=== PATIENT | female | born 1970 | race Caucasian/White ===

== ENCOUNTER → 2021-01-21 12:35 | Outpatient (REF) | payer MEDICAID, SELFPAY ==
--- NOTE | 2021-01-21 12:43 | CA_ITS ---
Transthoracic Echocardiogram Patient (Last, First, Middle): Alessandra Carrillo, Gender: Female Date of : 1970 Age: 50 Procedure Date: 01/21/2021 Procedure Type: Transthoracic Echocardiogram Location: OP Height: 160.02 cm Weight: 90.72 kg BSA: 1.93 m2 Heart Rate: bpm BP: 109 / 68 mmHg Loss Prevention Operations Manager: [email or web address] Referring MD: Al Rey MD Symptoms: I36.1, I51.7 Study Quality: Fair ECG Rhythm: Sinus Conclusions: - The left ventricular systolic function is normal. The visually estimated ejection fraction is between 60-65%. - There is mild to moderate tricuspid valve regurgitation. Findings Left Ventricle Normal left ventricular cavity size. There is normal left ventricular wall thickness. The left ventricular systolic function is normal. The visually estimated ejection fraction is between 60-65%. There is no evidence of regional wall motion abnormalities. Diastolic function is normal for age. Right Ventricle Normal right ventricular cavity size and systolic function. Atria The left atrium is normal in size. There is no evidence of interatrial shunt. Aortic Valve There is a normal trileaflet aortic valve. There is no aortic valve stenosis. There is no aortic valve regurgitation. Mitral Valve The mitral valve appears normal. There is trace mitral valve regurgitation. There is no mitral valve stenosis. Pulmonic Valve The pulmonic valve was not well visualized. Tricuspid Valve The tricuspid valve was not well visualized. There is mild to moderate tricuspid valve regurgitation. The pulmonary artery systolic pressure is normal. Great Vessels The aortic annulus, sinuses of valsalva, and asc aorta are normal in size. Venous The inferior vena cava is normal in size and collapses greater than 50% with inspiration. Pericardium/Pleural There is no evidence of pericardial effusion. Prior Study Comparison No significant change compared to prior study dated: 10/18/2019. Measurements 2D Linear Measurements IVSd: 0.85 0.6-0.9/0.6-1.0 cm LVIDd: 4.32 3.9-5.3/4.2-5.9 cm LVIDd Index: 2.24 2.4-3.2/2.2-3.1 cm/m2 LVIDs: 3.04 2.0-3.6 cm LVPWd: 1.04 0.7-1.1 cm Ao Root: 2.30 2.1-3.5 cm LA Diam: 3.20 2.7-3.8/3.0-4.0 cm LAIDs Index: 1.66 1.5-2.3 cm/m2 LV Mass: 164.61 67-162/88-224 g LV Mass Index: 85.29 43-95/49-115 g/m2 LVOT Diam: 1.80 3.0+(-)1.3 cm 2D Systolic Function EF 4C: 62.70 >55% EF 2C: 59.80 >55% EF BiP: 60.30 >55% Mitral Valve MV Pk E: 0.99 MV PK A: 0.69 MV Decel Time: 272.00 E/A: 1.40 E'Lateral: 10.00 E'Medial: 12.10 E/E' Med: 8.10 E/E' Lat: 9.90 PHT: 80.00 MVA PHT: 2.75 Decel [place]: 3.62 Aortic Valve AoV Pk Vaughn: 1.43 AoV Pk Grad: 8.00 LVOT LVOT Pk Vaughn: 1.14 LVOT Mn Vaughn: 0.86 LVOT VTI: 0.25 LVOT Pk Grad: 5.00 LVOT Mn Grad: 3.00 LVOT Diam: 1.80 LVOT Area: 2.54 Diastolic Function MV Pk E: 0.99 MV Pk A: 0.69 E/A: 1.40 E'Medial: 12.10 E/E' Med: 8.10 E' Laterial: 10.00 E/E' Lat: 9.90 Tricuspid Valve TR Pk Vaughn: 2.51 TR Pk Grad: 25.00 RA Press: 3.00 RVSP: 28.00 Great Vessels Aorta Ao Root-2D: 2.30 2.0-3.7 cm Ao Asc: 2.60 2.1-3.4 cm Updated in Other Vendor System with Status of Final Al Rey MD electronically signed on 01/21/2021 5:45:22 PM with status of Final
== END ==
LOC: HO.CARD 12:35
PROVIDERS: Visit Provider Internal Medicine
DX: I36.1 Nonrheumatic tricuspid (valve) insufficiency (principal); I51.7 Cardiomegaly
CPT/HCPCS: 93306

== ENCOUNTER → 2021-01-31 15:04 | Outpatient (BNVA) | payer MEDICAID, SELFPAY | PROVIDERS: PCP Internal Medicine Geriatric Medicine; Visit Provider Internal Medicine | DX: I36.1 Nonrheumatic tricuspid (valve) insufficiency (principal); I51.7 Cardiomegaly | CPT/HCPCS: 93005; 99212 ==

== ENCOUNTER 2021-03-07 12:21 | Outpatient (REF) | payer MEDICAID, SELFPAY ==
--- NOTE | ~2021-03-07 | MM_ITS ---
EXAMINATION: MM DIAGNOSTIC DIGITAL BREAST TOMOSYNTHESIS, BILATERAL US DIAGNOSTIC ULTRASOUND BREAST, RIGHT CLINICAL INFORMATION: Due for yearly. Also follow-up complicated cysts versus fibroadenoma mid 2:00 right breast. Prior history left breast biopsy at 2 sites on 03/05/2018 (fibroadenoma, both sites). Prior history right breast biopsy in [place], fibroadenoma by patient history. The lifetime risk of breast cancer based on the Tyrer-Cuzick Model is 22%. COMPARISON: Mammography: 03/05/2020, 03/01/2019, 02/21/2019 (BI-RADS 0), 08/13/2018, 03/05/2018. Targeted right breast ultrasound 03/05/2020, 08/30/2019, 03/01/2019. TECHNIQUE: Digital breast tomosynthesis is performed in both the craniocaudal and mediolateral oblique views along with computer-aided detection (CAD). Synthesized 2D images are generated from the tomosynthesis. Additional exaggerated right CC view is provided. Ultrasound right breast is targeted to the upper inner quadrant. Grayscale imaging and color Doppler are performed without and with harmonics. FINDINGS: The breasts are heterogeneously dense, which may obscure small masses (ACR BI-RADS breast composition Category c). Parenchymal pattern is similar to prior studies. There are 2 biopsy clip markers left breast and a biopsy clip marker anterior right breast with bilateral stable smooth nodularity. The oval smooth nodule for follow-up right 2:00 position mid depth appears stable. No interval dominant mass or architectural abnormality or abnormal calcifications. The axilla and skin contours are unremarkable. Ultrasound right breast demonstrates smooth circumscribed hypoechoic nodule 2:00 position 3 cm from nipple, long axis parallel with the skin. Overall dimensions are 1.3 x 0.7 x 0.7 cm. This is similar to prior measurements 1.3 x 0.7 cm on ultrasound 03/05/2020 and 1.1 x 0.7 cm on ultrasound 08/30/2019. There is no associated color flow. There is mild increased through-transmission of sound. Results are discussed with the patient at time of visit. MM/MM tomosynthesis diagnostic BI IMPRESSION: 1. No significant changes mammographic pattern from prior studies. 2. No significant change benign-appearing nodule 2:00 right breast. ASSESSMENT: BI-RADS 2: Benign RECOMMENDATION: Routine annual mammography screening. This patient's information was entered into a reminder system with a target due date for their next mammogram.
== END 2021-03-07 12:22 | disposition home or self-care (01) ==
LOC: HO.MAMMO 12:21
PROVIDERS: PCP Internal Medicine Geriatric Medicine; Visit Provider Internal Medicine Geriatric Medicine
DX: N60.01 Solitary cyst of right breast (principal)
CPT/HCPCS: 76642; 77062; 77066

== ENCOUNTER 2021-05-22 10:53 | Outpatient (REF) | payer MEDICAID, SELFPAY ==
--- NOTE | ~2021-05-22 | XR_ITS ---
EXAMINATION: XR LUMBOSACRAL SPINE WITH OBLIQUES CLINICAL INFORMATION: Lower back pain. COMPARISON: Lumbar spine radiographs dated 11/30/2018. TECHNIQUE: AP, lateral, coned-down, and bilateral oblique views of the lumbar spine. FINDINGS: Transitional anatomy with lumbarization of the S1 vertebral body. The lumbar lordosis is maintained. Minimal grade 1 anterolisthesis of L5 on S1, new when compared to the prior examination. Prominent bilateral facet arthropathy. No osseous erosion. No abnormal soft tissue calcification. XR/XR lumbar spine 4V min IMPRESSION: 1. Minimal grade 1 anterolisthesis of L5 on S1 with bilateral facet arthropathy, new when compared to the prior examination. 2. Transitional anatomy with lumbarization of the S1 vertebral body.
--- NOTE | ~2021-05-22 | XR_ITS ---
EXAMINATION: XR SHOULDER, LEFT CLINICAL INFORMATION: Left shoulder pain. COMPARISON: None TECHNIQUE: AP external rotation, Grashey, scapular Y, and axillary views of the left shoulder. FINDINGS: The bones and soft tissues are normal. No fracture. Glenohumeral and acromioclavicular alignment is anatomic with normal joint space. No abnormal soft tissue calcifications. XR/XR shoulder LT min 2V IMPRESSION: Unremarkable examination.
== END 2021-05-22 10:54 | disposition home or self-care (01) ==
LOC: HO.XRAY 10:53
PROVIDERS: PCP Internal Medicine Geriatric Medicine; Visit Provider Internal Medicine Geriatric Medicine
DX: M25.512 Pain in left shoulder (principal); M54.50 Low back pain, unspecified
CPT/HCPCS: 72110; 73030

== ENCOUNTER → 2022-12-08 15:18 | Outpatient (REF) | payer MEDICAID, SELFPAY ==
--- NOTE | 2022-12-08 16:01 | CA_ITS ---
Transthoracic Echocardiogram Patient (Last, First, Middle): Alessandra Carrillo, Gender: Female Date of : 1970 Age: 52 Procedure Date: 12/08/2022 Procedure Type: Transthoracic Echocardiogram Location: OP Height: 160.02 cm Weight: 84.82 kg BSA: 1.88 m2 Heart Rate: bpm BP: 134 / 80 mmHg Wood Grinder: JACEK Hi MD: Al Rey MD Jigger Crown Pouncing Machine Operator: Rocael Carranza MD Symptoms: I36.1 - Nonrheumatic tricuspid (valve) insufficiency Study Quality: Fair ECG Rhythm: Sinus Conclusions: - 1. Normal LV systolic function and diastolic filling pattern 2. Uciw-to-wvbeteks tricuspid regurgitation 3. Normal RV systolic pressure 4. No gross pericardial effusion Findings Left Ventricle Normal left ventricular size, thickness, and systolic function. The visually estimated ejection fraction is between 60-65%. Spectral Doppler is indicative of a normal filling pattern. Right Ventricle Normal right ventricular cavity size and systolic function. Atria Both atria are normal in size. There is no evidence of interatrial shunt. Aortic Valve Normal aortic valve structure and function. There is no aortic valve stenosis. There is no aortic valve regurgitation. Mitral Valve Normal mitral valve structure and function. There is trace mitral valve regurgitation. There is no mitral valve stenosis. Pulmonic Valve The pulmonic valve is likely normal. Tricuspid Valve Likely normal tricuspid valve structure and function. There is mild to moderate tricuspid valve regurgitation. The right ventricular systolic pressure is normal. The right ventricular systolic pressure is 34 mmHg. Normal right atrial pressure. There is no evidence of pulmonary hypertension. Great Vessels All visible segments of the aorta are normal in size. The pulmonary artery was not well visualized. Venous The inferior vena cava is normal in size and collapses greater than 50% with inspiration. Pericardium/Pleural There is no evidence of pericardial effusion. Prior Study Comparison No significant change compared to prior study dated: 01/21/2021. Measurements 2D Linear Measurements IVSd: 0.97 0.6-0.9/0.6-1.0 cm LVIDd: 4.56 3.9-5.3/4.2-5.9 cm LVIDd Index: 2.43 2.4-3.2/2.2-3.1 cm/m2 LVIDs: 2.85 2.0-3.6 cm LVPWd: 1.00 0.7-1.1 cm Ao Root: 2.50 2.1-3.5 cm LA Diam: 3.00 2.7-3.8/3.0-4.0 cm LAIDs Index: 1.60 1.5-2.3 cm/m2 LV Mass: 191.10 67-162/88-224 g LV Mass Index: 101.65 43-95/49-115 g/m2 LVOT Diam: 1.90 3.0+(-)1.3 cm 2D Systolic Function EF 4C: 60.50 >55% EF 2C: 65.10 >55% EF BiP: 63.40 >55% Mitral Valve MV Pk E: 0.89 MV PK A: 0.78 MV Decel Time: 264.00 E/A: 1.10 E'Lateral: 9.68 E'Medial: 10.40 E/E' Med: 8.50 E/E' Lat: 9.20 PHT: 77.00 MVA PHT: 2.86 Decel [place]: 3.36 Aortic Valve AoV Pk Vaughn: 1.70 AoV Mn Vaughn: 1.03 AoV VTI: 0.32 AoV Pk Grad: 12.00 Aov Mn Grad: 6.00 DEMETRIO Cont.VTI: 1.83 LVOT LVOT Pk Vaughn: 0.93 LVOT Mn Vaughn: 0.63 LVOT VTI: 0.21 LVOT Pk Grad: 3.00 LVOT Mn Grad: 2.00 LVOT Diam: 1.90 LVOT Area: 2.84 Diastolic Function MV Pk E: 0.89 MV Pk A: 0.78 E/A: 1.10 E'Medial: 10.40 E/E' Med: 8.50 E' Laterial: 9.68 E/E' Lat: 9.20 Right Ventricle TAPSE (mm): 24.00 Tricuspid Valve TR Pk Vaughn: 2.77 TR Pk Grad: 31.00 RA Press: 3.00 RVSP: 34.00 Great Vessels Aorta Ao Root-2D: 2.50 2.0-3.7 cm Ao Asc: 2.50 2.1-3.4 cm Pulmonary Valve PV Pk Vaughn: 0.88 Peak PV Grad: 3.00 Updated in Other Vendor System with Status of Final Rocael Carranza MD electronically signed on 12/09/2022 6:28:19 PM with status of Final
== END ==
LOC: HO.CARD 15:18
PROVIDERS: PCP Internal Medicine Geriatric Medicine; Visit Provider Internal Medicine
DX: I36.1 Nonrheumatic tricuspid (valve) insufficiency (principal)
CPT/HCPCS: 93306

== ENCOUNTER 2023-02-16 10:56 | Outpatient (AMB) | payer MEDICAID, SELFPAY ==
--- NOTE | 2023-02-16 11:04 | MHC.OFFVIS ---
Intake Vital Signs 02/16/23 11:05 Height 5 ft 3 in BMI Reason not done Patient refused/unable BP 110/72 Blood Pressure Location Lt brachial Position Sitting Pulse 88 Intake Visit Reasons: 2 yr f/up s/p echo Intake Note: 2 year follow up w/ EKG Furnace Attendant Required: No Accompanied by: Spouse Allergies No Known Allergies Allergy (Verified 02/16/23 11:08) Medication List - Last Reconciled 02/16/23 by Al Rey MD albuterol sulfate 90 mcg/actuation (ProAir HFA) 1 inh inhalation QID celecoxib (Celebrex) 200 mg PO DAILY diphenhydramine HCl (Banophen) 50 mg PO BEDTIME fluticasone propionate 220 mcg/actuation (Flovent HFA) 1 puff inhalation BID montelukast 10 mg PO DAILY quetiapine 50 mg PO BEDTIME tramadol 50 mg PO BID PRN HPI HPI Comments History of Present Illness Details Alessandra is here for follow-up regarding tricuspid regurgitation. In the past, she underwent extensive testing in [place] for unclear reasons. Records have been previously reviewed. There was evidence of moderate tricuspid regurgitation and mild mitral regurgitation then. Today, she comes to the clinic in a wheelchair. She states that is because of fibromyalgia as well as hip pain. From cardiac, it seems she gets very deconditioned on even walking short distances. Some shortness of breath from the same. Otherwise seems to be getting along okay. [facility] Medical History (Updated 01/31/21 @ 15:47 by Al Rey MD) Non-rheumatic tricuspid valve insufficiency Right ventricular enlargement Surgical History History of tubal ligation Family History Father HTN (hypertension) Mother HTN (hypertension) Social History Patient Tobacco Use Status: Never used Tobacco Review of Systems Const Denies weakness ENT Denies dizziness Card Denies chest pain, Denies chest pain with activity, Denies syncope, Denies rapid heart rate, Denies pedal edema, Denies edema, Denies leg edema, Denies lightheadedness, Denies palpitations, Denies dyspnea, Denies dyspnea on exertion and Denies orthopnea Resp Denies cough, Denies dyspnea and Denies dyspnea on exertion GI Denies hematochezia and Denies change in stool character Musc Denies abnormal gait, Denies muscle cramps, Denies muscle weakness, Denies numbness, Denies radiating pain into limb and Denies tingling Neuro Denies abnormal gait, Denies dizziness, Denies syncope, Denies numbness, Denies tingling and Denies weakness Endo Denies palpitations Physical Exam Vital Signs: Last Vital Signs Pulse 88 02/16/23 11:05 BP 110/72 02/16/23 11:05 Const General: comfortable and no acute distress Orientation/consciousness: patient oriented x3 HEENT Other: Unremarkable Head: Yes normal to inspection Neck Neck: Yes normal visual inspection Chest Chest palpation & inspection: normal inspection of the chest Resp Auscultation: clear to auscultation bilaterally Cardio Palpation: normal PMI Heart sounds: S1 normal heart sound present, S2 normal heart sound present, no gallops, no murmurs and no rubs GI Palpation (GI): Soft to palpation Back/Spine/Pelvis Other: unremarkable Skin General skin exam: no rashes or lesions noted Neuro General: patient oriented x3 Extrem General: Yes normal to inspection Psych Mental Status: mental status grossly normal Office Procedures EKG Details: EKG with sinus rhythm at 88/min; no significant ST-T changes and otherwise unremarkable[place] [address]-[id number], Complete Assessment & Plan Assessment & Plan (1) Non-rheumatic tricuspid valve insufficiency: Code(s): I36.1 - Nonrheumatic tricuspid (valve) insufficiency Plan Cardiac studies were reviewed. In the most recent echocardiogram, LVEF 60-60%. Yegu-vz-[id number] tricuspid regurgitation. Normal right ventricular size and systolic function. In the past, echocardiogram had shown moderate to severe tricuspid regurgitation and mildly dilated right ventricle. Dobutamine perfusion imaging study 2018 from [place] had shown normal perfusion without ischemia. Overall, she remains stable. No specific interventions for tricuspid regurgitation. We can recheck this in about 3 years or so. In the interim, she will call with concerns. Also, discussed with who came for the appointment. Coding Level of Care Code Est Pt Level 3 (38578) Diagnoses Non-rheumatic tricuspid valve insufficiency I36.1 CPT Codes EKG - CPT: 42992-[id number], Complete ([id number])
[2023-02-16 11:05] VITALS: BP 110/72; PULSE 88
== END 2023-02-16 11:30 | disposition home or self-care (01) ==
PROVIDERS: Visit Provider Internal Medicine
DX: I36.1 Nonrheumatic tricuspid (valve) insufficiency (principal)
CPT/HCPCS: 93010; 99213

== ENCOUNTER → 2023-02-16 10:56 | Outpatient (BNVA) | payer MEDICAID, SELFPAY | PROVIDERS: Visit Provider Internal Medicine | DX: I36.1 Nonrheumatic tricuspid (valve) insufficiency (principal) | CPT/HCPCS: 93005; 99212 ==

== ENCOUNTER 2023-05-15 15:52 | Outpatient (REF) | payer MEDICAID, SELFPAY | END 2023-05-15 15:53 | disposition home or self-care (01) | LOC: HO.HHCLNP 15:52 | PROVIDERS: Visit Provider Internal Medicine Geriatric Medicine | DX: R30.0 Dysuria (principal) | CPT/HCPCS: 81001; 81003; 87086; 87088; 87186 ==

== ENCOUNTER 2023-06-22 11:33 | Outpatient (REF) | payer MEDICAID, SELFPAY ==
--- NOTE | ~2023-06-22 | MM_ITS ---
EXAMINATION: MM SCREENING DIGITAL BREAST TOMOSYNTHESIS, BILATERAL CLINICAL INFORMATION: Screening. Asymptomatic. COMPARISON: Mammography: This study is compared with prior exams dating back to 2018. TECHNIQUE: Digital breast tomosynthesis is performed in both the craniocaudal and mediolateral oblique views along with computer-aided detection (CAD). Synthesized 2D images are generated from the tomosynthesis. FINDINGS: The breasts are heterogeneously dense, which may obscure small masses (ACR BI-RADS breast composition Category c). There are no significant masses, abnormal calcifications, or other abnormalities. There is a biopsy tissue marker in the lower inner quadrant of the right breast. This is associated with a small, oval, benign mass. There are 2 tissue markers in the left breast from prior benign percutaneous biopsies. MM/MM tomosynthesis screening BI IMPRESSION: No mammographic evidence of malignancy. ASSESSMENT: BI-RADS BI-RADS 2 - Benign Findings RECOMMENDATION: Routine annual mammography screening. 1 year F/U This examination should not preclude the clinical evaluation of a suspicious palpable abnormality. This patient's information was entered into a reminder system with a target due date for their next mammogram.
== END 2023-06-22 11:34 | disposition home or self-care (01) ==
LOC: HO.MAMMO 11:33
PROVIDERS: PCP Internal Medicine Geriatric Medicine; Visit Provider Internal Medicine Geriatric Medicine
DX: Z12.31 Encounter for screening mammogram for malignant neoplasm of breast (principal)
CPT/HCPCS: 77063; 77067

== ENCOUNTER → 2023-06-22 11:45 | Outpatient (BNV) | payer MEDICAID, SELFPAY | PROVIDERS: PCP Internal Medicine Geriatric Medicine; Visit Provider Radiology Diagnostic Radiology | DX: Z12.31 Encounter for screening mammogram for malignant neoplasm of breast (principal) | CPT/HCPCS: 77063; 77067 ==

== ENCOUNTER 2023-11-17 09:49 | Outpatient (REF) | payer MEDICAID, SELFPAY ==
[2023-11-17 12:15] LABS: Estimated Average Glucose 108 mg/dL; Hemoglobin A1c % 5.4 % (<6.0)
[2023-11-17 12:25] LABS: Alanine Aminotransferase 18 U/L (0-31); Albumin Level 4.2 g/dL (3.5-5.0); Alkaline Phosphatase 58 U/L (39-117); Anion Gap 11 (12-20); Aspartate Amino Transferase 17 U/L (5-31); Bilirubin Total 0.3 mg/dL (0.0-1.0); Blood Urea Nitrogen 12 mg/dL (9-16); Calcium 9.3 mg/dL (8.4-10.2); Carbon Dioxide 27 mmol/L (22-29); Chloride 106 mmol/L (96-108); Cholesterol 206 mg/dL (<200); Estimated Glomerular Filt Rate > 60; Glucose Random 87 mg/dL (60-115); HDL Cholesterol 62 mg/dL (>40); LDL Cholesterol Calculated 133 mg/dL (<100); Potassium 3.7 mmol/L (3.3-5.1); Sodium 140 mmol/L (135-145); Total Protein 7.6 g/dL (6.5-8.0); Triglycerides 56 mg/dL (<150)
[2023-11-17 12:34] LABS: ~HepC Num1 0.17 S/CO (0.00-0.79); ~Hepatitis C Antibody Nonreactive (Nonreactive)
== END 2023-11-17 09:50 | disposition home or self-care (01) ==
LOC: HO.HHCL 09:49
PROVIDERS: Visit Provider Internal Medicine Geriatric Medicine
DX: Z13.1 Encounter for screening for diabetes mellitus (principal); Z13.220 Encounter for screening for lipoid disorders; Z11.59 Encounter for screening for other viral diseases
CPT/HCPCS: 36415; 80053; 80061; 83036; 86803

== ENCOUNTER 2024-02-02 19:34 | Outpatient (REF) | payer MEDICAID, SELFPAY ==
[2024-02-05 14:48] LABS: HPV mRNA E6/E7 Not Detected (Not Detected)
== END 2024-02-02 19:35 | disposition home or self-care (01) ==
LOC: HO.HHCLNP 19:34
PROVIDERS: Visit Provider Advanced Practice Midwife
DX: Z12.4 Encounter for screening for malignant neoplasm of cervix (principal)
CPT/HCPCS: 36415; 87624; 88175

== ENCOUNTER 2024-05-31 11:19 | Outpatient (REF) | payer OTHER, SELFPAY ==
--- NOTE | ~2024-05-31 | US_ITS ---
EXAMINATION: US PELVIS CLINICAL INFORMATION: History of right ovarian cyst COMPARISON: Pelvic ultrasound 03/01/2019 TECHNIQUE: Ultrasound of the pelvis is performed using both transabdominal and transvaginal transducers along with Doppler. Transvaginal imaging is performed due to inadequate visualization transabdominally. FINDINGS: Uterus: The uterus is anteverted and measures 8.6 x 3.7 x 4.6 cm. The double wall endometrial thickness is 6 mm. The uterus is smooth in contour and has normal myometrial echogenicity. The previously seen small uterine fibroids are not visualized at this time and no visible fibroid is seen on the current study. Adnexa: Both ovaries are visualized. There is normal color flow to the adnexa. There is no ovarian torsion. There is no pelvic ascites or fluid collection. Right ovary measures 3.8 x 3.5 x 3.4 cm for a volume of 27.3 mL and contains a benign simple 3.5 x 3.0 x 2.8 cm cyst. Left ovary measures 2.5 x 1.4 x 1.4 cm for a volume of 2.4 mL. US/US pelvic and transvaginal IMPRESSION: Benign simple 3.5 cm right ovarian cyst. Given the patient is postmenopausal, a follow-up ultrasound is recommended in 6-12 months. Electronically signed by: Zach Durant MD 06/01/2024 05:49 PM EDT
== END 2024-05-31 11:20 | disposition home or self-care (01) ==
LOC: HO.US 11:19
PROVIDERS: PCP Internal Medicine Geriatric Medicine; Visit Provider Advanced Practice Midwife
DX: N83.201 Unspecified ovarian cyst, right side (principal)
CPT/HCPCS: 76830; 76856

== ENCOUNTER 2024-06-28 11:07 | Outpatient (REF) | payer OTHER, SELFPAY ==
--- NOTE | ~2024-06-28 | MM_ITS ---
EXAMINATION: MM SCREENING DIGITAL BREAST TOMOSYNTHESIS, BILATERAL CLINICAL INFORMATION: Screening. Asymptomatic. COMPARISON: Mammography: Comparison is made with available priors TECHNIQUE: Digital breast mammography with tomosynthesis is performed in both the craniocaudal and mediolateral oblique views along with computer-aided detection (CAD). FINDINGS: The breasts are heterogeneously dense, which may obscure small masses (ACR BI-RADS breast composition Category c). Bilateral marker clips. There are no significant masses, abnormal calcifications, or other abnormalities. MM/MM tomosynthesis screening BI IMPRESSION: No mammographic evidence of malignancy. ASSESSMENT: BI-RADS BI-RADS 2 - Benign Findings RECOMMENDATION: Routine annual mammography screening. 1 year F/U This examination should not preclude the clinical evaluation of a suspicious palpable abnormality. This patient's information was entered into a reminder system with a target due date for their next mammogram. Electronically signed by: Caitlin Ovalles DO 07/06/2024 08:17 AM NEPTALI
== END 2024-06-28 11:08 | disposition home or self-care (01) ==
LOC: HO.MAMMO 11:07
PROVIDERS: PCP Internal Medicine Geriatric Medicine; Visit Provider Internal Medicine Geriatric Medicine
DX: Z12.31 Encounter for screening mammogram for malignant neoplasm of breast (principal)
CPT/HCPCS: 77063; 77067

== ENCOUNTER → 2024-06-28 11:30 | Outpatient (BNV) | payer OTHER, SELFPAY | PROVIDERS: PCP Internal Medicine Geriatric Medicine; Visit Provider Internal Medicine | DX: Z12.31 Encounter for screening mammogram for malignant neoplasm of breast (principal) | CPT/HCPCS: 77063; 77067 ==

== ENCOUNTER 2025-01-16 09:11 | Outpatient (REF) | payer OTHER, SELFPAY ==
--- OUTSIDE RECORDS SUMMARY | 2025-01-16 09:36 | XMS_ITS | Encounter Summary ---
Author Organization [employer] Address [address] [place] [address] Care Team Providers Care Correctional Therapy Teacher Name Role Phone Name, Tushar ROWE Primary Care Provider [phone] Cuate Conley Unavailable Unavailable Reason for Visit * Reason Onset Date Comments Med Refill 02/10/2024 Encounter Details Date Type Department Care Team (Late st Contact Info) Description 02/10/2024 Refill [facility] MEDICINE [address] [place] [address] Cuate Conley FNP Social History Tobacco Use Types Packs/Day Years Used Date Smoking Tobacco: Never Smokeless Tobacco: Never Alcohol Use Standard Drinks/Week Comments Never 0 (1 standard drink = 0.6 oz pur e alcohol) Depression Answer Date Recorded Patient Health Questionnaire-9 Score 9 12/03/2023 Patient Health Questionnaire-9 Score 9 12/03/2023 Last PHQ-9: Questionnaire Data Not on file 0 12/03/2023 Housing Stability Answer Date Recorded What is your housing situation today? I have jazmin talamantes 12/07/[address] you li ve. Do you have problems with any of the following? None of the above 12/07/2023 Food Insecurity Answer Date Recorded Within the past 12 months, y ou worried that your food would run out before you got money to buy more: Never True 12/07/2023 Within the past 12 months,th e food you bought just didn't last and you didn't have enough money to get more: Never True Transportation Answer Date Recorded In the past 12 months, has l ack of transportation kept you from medical appts, meetings, work or from getting things needed for daily living? No 12/07/2023 Utilities Answer Date Recorded In the past 12 months, has t he electric, gas, oil or water company threatened to shut off services in your home? No 12/07/2023 Depression Answer Date Recorded Patient Health Questionnaire-2 Score 2 12/03/2023 Comments Unknown Sex and Gender Information Value Date Recorded Sex Assigned at Female 06/09/2022 10:34 AM EDT Legal Sex Female 10:34 AM EDT Gender Identity Female 06/09/2022 10:34 AM EDT Sexual Orientation Choose not to disclose 2021 10:34 AM EDT documented as of this encounter Plan of Treatment Upcoming Encounters Date Type Department Care Team (Latest Contact Info) Description 01/16/2025 10:00 AM EDT Clinical Support [address] [address] Britni Tejada RN Long-term current use of opiate analgesic (Primary Dx) 01/31/2025 1:00 PM EDT Procedure Visit [address] [address] Clarissa Muro CNM [address] [place] [id number] 02/20/2025 10:15 AM EDT Office Visit [address] [address] NameTushar MD [address] [place] [id number] documented as of this encounter Visit Diagnoses Not on filedocumented in this encounter Additional Health Concerns Assessment Noted Time PHQ-9 Depression Total Score: 9 12/03/19 24 1:46 PM EDT documented as of this encounter Care Teams Correctional Therapy Teacher Relationship Specialty Start Date End Date Tushar Bradshaw MD [address] [place] [id number] PCP - General Family Medicine 01/25/18 Cuate Conley FNP [address] [place] [address] Nurse Practitioner Family Medicine 07/14/23 documented as of this encounter
[2025-01-16 11:39] LABS: Estimated Average Glucose 111 mg/dL; Hemoglobin A1C 135.4356 umol/L; Hemoglobin A1c % 5.5 % (<6.0); Total Hemoglobin (HGBA1C) 3657.0404 umol/L
[2025-01-16 11:45] LABS: Alanine Aminotransferase 30 U/L (0-31); Albumin Level 4.2 g/dL (3.5-5.0); Alkaline Phosphatase 83 U/L (39-117); Anion Gap 8 (12-20); Aspartate Amino Transferase 24 U/L (5-31); Bilirubin Direct 0.1 mg/dL (0.0-0.5); Bilirubin Total 0.3 mg/dL (0.0-1.0); Blood Urea Nitrogen 13 mg/dL (9-16); Calcium 9.4 mg/dL (8.4-10.2); Carbon Dioxide 29 mmol/L (22-29); Chloride 108 mmol/L (96-108); Cholesterol 208 mg/dL (<200); Estimated Glomerular Filt Rate > 60; Glucose Random 89 mg/dL (60-115); HDL Cholesterol 63 mg/dL (>40); LDL Cholesterol Calculated 128 mg/dL (<100); Potassium 3.8 mmol/L (3.3-5.1); Sodium 141 mmol/L (135-145); Total Protein 7.6 g/dL (6.5-8.0); Triglycerides 88 mg/dL (<150)
== END 2025-01-16 09:12 | disposition home or self-care (01) ==
LOC: HO.HHCL 09:11
PROVIDERS: Advanced Practice Midwife; Visit Provider Internal Medicine Geriatric Medicine
DX: Z79.899 Other long term (current) drug therapy (principal); Z13.1 Encounter for screening for diabetes mellitus; F32.3 Major depressive disorder, single episode, severe with psychotic features; M79.7 Fibromyalgia
CPT/HCPCS: 36415; 80053; 80061; 82248; 83036

== ENCOUNTER 2025-01-31 16:15 | Outpatient (REF) | payer OTHER, SELFPAY ==
--- OUTSIDE RECORDS SUMMARY | 2025-01-31 13:00 | XMS_ITS | Encounter Summary ---
Author Organization [employer] [facility] Address [address] [facility] [address] [place] [address] Care Team Providers Care Grain Operator Name Role Phone Name, Tushar ROWE Primary Care Provider [phone] Cuate Conley Unavailable Unavailable Reason for Referral * Medications - Closed Specialty Diagnoses / Procedures Referred By Wanda larson Referred To Contact Diagnoses Vasomotor symptoms due to menopause Clarissa Muro CNM [address] [place] [address] Phone: tel: fax: Referral ID Status Reason Start Date Expiration Date Visits Re quested Visits Authorized [id number] Closed 1 1 Reason for Visit * Reason Comments Gynecologic Exam Encounter Details Date Type Department Care Team (Latest Contact Info) Description 01/31/2025 1:00 PM EDT Procedure Visit [facility] [address] [place] [address] Clarissa Muro CNM [address] [place] [address] Vasomotor symptoms due to menopause (Primary Dx); Visit for pelvic exam; Vulvar itching Social History Tobacco Use Types Packs/Day Years Used Date Smoking Tobacco: Never Smokeless Tobacco: Never Alcohol Use Standard Drinks/Week Comments Never 0 (1 standard drink = 0.6 oz pur e alcohol) Depression Answer Date Recorded Patient Health Questionnaire-9 Score 14 11/16/2024 Patient Health Questionnaire-9 Score 14 11/16/2024 Last PHQ-9: Questionnaire Data Not on file 0 11/16/2024 Housing Stability Answer Date Recorded What is your housing situation today? I have jazmin talamantes 12/07/[address] you li ve. Do you have problems with any of the following? None of the above 12/07/2023 Food Insecurity Answer Date Recorded Within the past 12 months, y ou worried that your food would run out before you got money to buy more: Sometimes True 2024 Within the past 12 months,th e food you bought just didn't last and you didn't have enough money to get more: Sometimes True 11/16/2024 Transportation Answer Date Recorded In the past 12 months, has l ack of transportation kept you from medical appts, meetings, work or from getting things needed for daily living? Yes, it has kept me from medical appointments or getting medications. 11/16/2024 Utilities Answer Date Recorded In the past 12 months, has t he electric, gas, oil or water company threatened to shut off services in your home? Yes 11/16/2024 Depression Answer Date Recorded Patient Health Questionnaire-2 Score 2 11/16/2024 Internet Access Answer Date Recorded Internet Access Q1 Yes 11/16/2024 Internet Access Q2 Not on file 11/16/2024 Comments No Sex and Gender Information Value Date Recorded Sex Assigned at Female 06/09/2022 10:34 AM EDT Legal Sex Female 10:34 AM EDT Gender Identity Female 06/09/2022 10:34 AM EDT Sexual Orientation Choose not to disclose 2021 10:34 AM EDT documented as of this encounter Last Filed Vital Signs Vital Sign Reading Time Taken Comments Blood Pressure 110/80 01/31/2025 1:16 PM EDT Pulse 94 01/31/2025 1:16 PM EDT Temperature 37.1 C (98.8 F) 01/31/2025 1:16 PM EDT Respiratory Rate 20 01/31/2025 1:16 PM EDT Oxygen Saturation 98% 01/31/2025 1:16 PM EDT Inhaled Oxygen Concentration - - Weight 91.7 kg (202 lb 3.2 oz) 01/31/2025 1:16 P M EDT Height 160 cm (5' 3 ) 01/31/2025 1:16 PM EDT Body Mass Index 35.82 01/31/2025 1:16 PM EDT documented in this encounter Progress Notes * Clarissa Muro CNM - 01/31/2025 1:00 PM EDT Subjective Patient ID: Alessandra Roman is a 54 y.o. female who presents for DENTAL OFFICE RECEPTIONIST visit Pap NIL/HPV neg 01/2024. Pap NIL/HPV neg 2018. Mammo BIRADS 2, cat c 06/2024. History of benign breast biopsy. 1 AMAB partner, no safety concerns. Not currently sexually active due to significant generalized pain (fibromyalgia) Pelvic ultrasound with benign right ovarian cyst 05/2024, no followup needed for this. Veozah rx'd 02/2024. Advised to stop vaginal estrogen with this. Not using either. It sounds like Veozah requiredPA. LMP just over a year ago. Very bothersome vasomotor symptoms, sleeping issues. Notes occasionalvulvar rash/itch, no current symptoms. Normal LFTs 01/2025. Would like breast and pelvic exam today. Review of Systems Genitourinary: Negative for dysuria, frequency, genital sores, hematuria, menstrual problem, pelvicpain, urgency, vaginal bleeding, vaginal discharge and vaginal pain. No abnormal pap, no abnormal bleeding, no breast pain, no breast mass, no nipple discharge Objective BP 110/80 (BP Location: Left arm, Patient Position: Sitting, BP Cuff Size: Large adult long) Pulse 94 Temp 98.8 ??F (37.1 ??C) (Oral) Resp 20 Ht 5' 3 (1.6 m) Wt 202 lb 3.2 oz (91.7 kg) SpO2 98% BMI 35.82 kg/m?? Physical Exam Contract Associate present: declines sewer cleaner. Constitutional: Appearance: Normal appearance. Chest: Breasts: Right: Normal. No swelling, bleeding, inverted nipple, mass, nipple discharge, skin change or tenderness. Left: Normal. No swelling, bleeding, inverted nipple, mass, nipple discharge, skin change or tenderness. Genitourinary: General: Normal vulva. Labia: Right: No rash, tenderness, lesion or injury. Left: No rash, tenderness, lesion or injury. Vagina: Normal. No signs of injury and foreign body. No vaginal discharge, erythema, tenderness, bleeding or lesions. Cervix: No cervical motion tenderness, discharge, friability, lesion, erythema, cervical bleeding or eversion. Uterus: Normal. Not enlarged and not tender. Adnexa: Right adnexa normal and left adnexa normal. Right: No mass, tenderness or fullness. Left: No mass, tenderness or fullness. Comments: Ovaries non palpable bilaterally. Lymphadenopathy: Upper Body: Right upper body: No supraclavicular or axillary adenopathy. Left upper body: No supraclavicular or axillary adenopathy. Neurological: Mental Status: She is alert. Psychiatric: Mood and Affect: Mood normal. Behavior: Behavior normal. Assessment/Plan Diagnoses and all orders for this visit: Vasomotor symptoms due to menopause - Fezolinetant (Veozah) 45 MG tablet; Take 1 tablet by mouth Once per day. Will try to get PA for Veozah as other medications interact with her existing mediations. Hormone therapy best avoided due to cardiovascular risk (valvular heart disease). Knows we can't use vaginal estrogen with Veozah. Followup 2-3m after Veozah started. Will need monthly LFTs once started x 3 months, then Q3m. Visit for pelvic exam Cotest 01/2029. Routine mammography. Report bleeding. Vulvar itching - Bacterial Vaginosis Panel Normal exam today. Will send bacterial vaginosis swab and treat positive results. Report if symptoms recur. documented in this encounter Plan of Treatment Upcoming Encounters Date Type Department Care Team (Late st Contact Info) Description 02/20/2025 10:15 AM EDT Office Visit [address] [address] Name, MD Tushar [address] [place] [address] 06/12/2025 11:30 AM EST Clinical Support [address] [address] Britni Tejada RN Scheduled Orders Name Type Priority Associated Diagnoses Orde r Schedule Bacterial Vaginosis Panel Microbiology Routine Vulvar itching Ordered: 01/31/2025 documented as of this encounter Visit Diagnoses Diagnosis Vasomotor symptoms due to menopause- Primary Visit for pelvic exam Vulvar itching documented in this encounter Additional Health Concerns Assessment Noted Time PHQ-9 Depression Total Score: 14 025 3:25 PM EDT documented as of this encounter Care Teams Grain Operator Relationship Specialty Start Date End Date Name, MD Tushar [address] [place] [address] PCP - General Family Medicine 01/25/18 Cuate Conley FNP [address] [place] [address] Nurse Practitioner Family Medicine 07/14/23 documented as of this encounter
[2025-01-31 21:11] LABS: Bacterial Vaginosis PCR POSITIVE (Negative); Candida Group PCR NOT DETECTED (Not Detect); Candida glab krusei PCR NOT DETECTED (Not Detect); Trichomonas vaginalis PCR NOT DETECTED (Not Detect)
== END 2025-01-31 16:16 | disposition home or self-care (01) ==
LOC: HO.HHCLNP 16:15
PROVIDERS: Visit Provider Advanced Practice Midwife
DX: L29.2 Pruritus vulvae (principal)
CPT/HCPCS: 81515

== ENCOUNTER 2025-02-20 10:56 | Outpatient (REF) | payer OTHER, SELFPAY ==
--- NOTE | ~2025-02-20 | XR_ITS ---
EXAMINATION: XR LUMBOSACRAL SPINE CLINICAL INFORMATION: acute on chronic low back pain COMPARISON: 05/22/2021. TECHNIQUE: Three views of the lumbosacral spine. FINDINGS: There is transitional lumbosacral anatomy with a partially sacralized L5 vertebral body. The right transverse process of L5 pseudoarticulates with the right sacral wing. There is a minimal right convex scoliosis with a mild rotatory component. There is a normal lordosis. There is a 5 mm degenerative appearing anterolisthesis of L4 on L5. There is mild disc space narrowing noted at L4-5 and L5-S1. Normal facet alignment. Degenerative facet changes present L4-S1. There is no soft tissue abnormality identified. XR/XR lumbar spine 2-3V IMPRESSION: 1. 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 2. No acute bony abnormalities of the lumbar spine. 3. 5 mm degenerative anterolisthesis of L4 on L5, unchanged from the prior exam. 4. Mild degenerative spondylosis most notable L4-S1. Electronically signed by: Jean-Claude Bernabe MD 02/20/2025 12:00 PM EDT
--- NOTE | ~2025-02-20 | XR_ITS ---
EXAMINATION: XR THORACIC SPINE CLINICAL INFORMATION: PAIN; chronic low back pain, fibromyalgia. COMPARISON: None available. TECHNIQUE: 3 views of the thoracic spine were obtained. FINDINGS: There is a mild levoconvex scoliosis, apex at T4. There is a normal kyphosis. There is no subluxation. There is no compression deformity, fracture, or suspicious bone lesion. There is early multilevel disc and facet degeneration. There is normal facet alignment. The paravertebral soft tissues, imaged lungs and mediastinal contents appear normal. XR/XR thoracic spine 2V IMPRESSION: No acute findings of the thoracic spine. Mild degenerative spondylosis. Electronically signed by: Jean-Claude Bernabe MD 02/20/2025 11:47 AM EDT
--- OUTSIDE RECORDS SUMMARY | 2025-02-20 11:56 | XMS_ITS | Clinical Summary ---
Author Organization [employer] [facility] ity Address [address] [place] [address] Care Team Providers Care Pharmacy Affairs Assistant Name Role Phone Unavailable Primary Care Provider Unavailabl e Social History Tobacco Use Types Packs/Day Years Used Date Smoking Tobacco: Never Assessed Comments Unknown Sex and Gender Information Value Date Recorded Sex Assigned at Not on file Legal Sex Female 3:14 PM EST Gender Identity Not on file Sexual Orientation Not on file Plan of Treatment Health Maintenance Due Date Last Done Comments Breast Cancer Screening 1971 DTaP,Tdap,and Td Vaccines (1 - Tdap) 1990 Hepatitis B Vaccines (1 of 3 - 19+ 3-dose series) 1990 Cervical Cancer Screening: P ap Smear 1992 Pneumococcal Vaccine: 50+ Ye ars (1 of 1 - PCV) 2021 Zoster Vaccines (1 of 2) 2021 COVID-19 Vaccine ( - 2023-2 5 season) 2024 Influenza Vaccine (#1) 2025 HIB Vaccines Aged Out No longer eligi ble based on patient's age to complete this topic HPV Vaccines Aged Out No longer eligi ble based on patient's age to complete this topic Hepatitis A Vaccines Aged Out No long er eligible based on patient's age to complete this topic IPV Vaccines Aged Out No longer eligi ble based on patient's age to complete this topic MMR Vaccines Aged Out No longer eligi ble based on patient's age to complete this topic Meningococcal ACWY Vaccine Aged Out N o longer eligible based on patient's age to complete this topic Meningococcal B Vaccine Aged Out No l onger eligible based on patient's age to complete this topic RSV Immunization Patients Un andrew 20 months Aged Out No longer eligible b ased on patient's age to complete this topic Varicella Vaccines Aged Out No longer eligible based on patient's age to complete this topic
--- OUTSIDE RECORDS SUMMARY | 2025-02-20 11:56 | XMS_ITS | Encounter Summary ---
Author Organization [id number] Address [address] [facility] 7[address] [place] [address] Care Team Providers Care Hospice Team Lead Name Role Phone Name, Tushar ROWE Primary Care Provider [phone] Cuate Conley Unavailable Unavailable Reason for Visit * Reason Onset Date Comments Med Refill 02/10/2024 Encounter Details Date Type Department Care Team (Late st Contact Info) Description 02/10/2024 Refill [facility] [address] [place] [address] Caute Conley FNP Social History Tobacco Use Types [...] Care Team (Late st Contact Info) Description 06/12/2025 11:30 AM EST Clinical Support [facility] [address] [place] [address] Britni Tejada, RN documented as of this encounter Visit Diagnoses Not on filedocumented in this encounter Additional Health Concerns Assessment Noted Time PHQ-9 Depression Total Score: 9 12/03/19 24 1:46 PM EDT documented as of this encounter Care Teams Hospice Team Lead Relationship Specialty Start Date End Date Name, MD Tushar [address] [place] [address] PCP - General Family Medicine 01/25/18 Cuate Conley FNP [address] [place] [address] Nurse Practitioner Family Medicine 07/14/23 documented as of this encounter
== END 2025-02-20 10:57 | disposition home or self-care (01) ==
LOC: HO.HHCX 10:56
PROVIDERS: PCP Internal Medicine Geriatric Medicine; Visit Provider Internal Medicine Geriatric Medicine
DX: M54.50 Low back pain, unspecified (principal); G89.29 Other chronic pain; M79.7 Fibromyalgia
CPT/HCPCS: 72070; 72100

== ENCOUNTER → 2025-02-20 11:02 | Outpatient (BNV) | payer OTHER, SELFPAY | PROVIDERS: PCP Internal Medicine Geriatric Medicine; Visit Provider Radiology Diagnostic Radiology | DX: M43.16 Spondylolisthesis, lumbar region (principal); M54.50 Low back pain, unspecified; M79.7 Fibromyalgia | CPT/HCPCS: 72070; 72100 ==

== ENCOUNTER 2025-07-10 10:20 | Outpatient (REF) | payer OTHER, SELFPAY ==
--- NOTE | ~2025-07-10 | MM_ITS ---
EXAMINATION: MM SCREENING DIGITAL BREAST TOMOSYNTHESIS, BILATERAL CLINICAL INFORMATION: Screening. Asymptomatic. COMPARISON: Mammography: Comparison is made with available priors TECHNIQUE: Digital breast mammography with tomosynthesis is performed in both the craniocaudal and mediolateral oblique views along with computer-aided detection (CAD). FINDINGS: The breasts are heterogeneously dense, which may obscure small masses. Bilateral marker clips. There are no significant masses, abnormal calcifications, or other abnormalities. MM/MM tomosynthesis screening BI IMPRESSION: No mammographic evidence of malignancy. ASSESSMENT: BI-RADS Category 2: Benign RECOMMENDATION: Routine annual mammography screening. 1 year F/U This examination should not preclude the clinical evaluation of a suspicious palpable abnormality. This patient's information was entered into a reminder system with a target due date for their next mammogram. Electronically signed by: Caitlin Ovalles DO 07/10/2025 05:47 PM NEPTALI
--- OUTSIDE RECORDS SUMMARY | 2025-07-10 12:51 | XMS_ITS | Clinical Summary ---
Author Organization [facility] Address [address] [place] [address] Care Team Providers Care President/[employer] Name Role Phone Unavailable Primary Care Provider [...] 2021 Zoster Vaccines (1 of 2) 2021 Depression Screening 08/10/2024 COVID-19 Vaccine ( - 2024-2 6 season) 2025 Influenza Vaccine (#1) 2025 RSV Immunization Adult Patie nts (1 - 1-dose 75+ series) 2046 HIB Vaccines Aged Out No longer eligi [...]
--- OUTSIDE RECORDS SUMMARY | 2025-07-10 12:51 | XMS_ITS | Encounter Summary ---
Author Organization [employer] [facility] Address [address] [facility] [address] [place] [address] Care Team Providers Care Folding Machine Operator Name Role Phone Name, Tushar ROWE Primary Care Provider [phone] Cuate Conley Unavailable Unavailable Encounter Details Date Type Department Care Team (Late st Contact Info) Description 10/13/2022 Orders Only [address] [address] Cynthia Plata LPN Social History Tobacco Use Types Packs/Day Years [...] Care Team (Late st Contact Info) Description 09/05/2025 1:00 PM EST Office Visit [address] [address] Name, MD Tushar [address] [place] [address] 10/02/2025 11:30 AM EST Clinical Support [address] [address] Britni Tejada RN documented as of this encounter Visit Diagnoses Not on filedocumented in this encounter Care Teams Folding Machine Operator Relationship Specialty Start Date End Date Name, MD Tushar [address] [place] [address] PCP - General Family Medicine 01/25/18 Cuate Conley FNP [address] [place] [address] Nurse Practitioner Family Medicine 07/14/23 documented as of this encounter
--- OUTSIDE RECORDS SUMMARY | 2025-07-10 12:51 | XMS_ITS | Encounter Summary ---
Author Organization [employer] Address [address] [facility] 7t [place] [address] Care Team Providers Care Matcher Operator Name Role Phone Name, Tushar ROWE Primary Care Provider [phone] Cuate Conley Unavailable Unavailable Reason for Visit * Reason Onset Date Comments Med Refill 11/24/2024 Encounter Details Date Type Department Care Team (Late st Contact Info) Description 11/24/2024 Refill [facility] [address] [place], [place] [phone] Name, MD Tushar [address] [place], [place] [phone] Fibromyalgia Social History Tobacco Use Types Packs/Day Years [...] Access Q2 Not on file 11/16/2024 Comments Unknown Sex and Gender Information Value [...] Description 09/05/2025 1:00 PM EST Office Visit [address] [address] NameTushar MD [address] [place] [address] 10/02/2025 11:30 AM EST Clinical Support [address] [address] Britni Tejada RN documented as of this encounter Visit Diagnoses Diagnosis Fibromyalgia Unspecified myalgia and myositis documented in this encounter Additional Health Concerns Assessment Noted Time PHQ-9 Depression Total Score: 14 025 3:25 PM EDT documented as of this encounter Care Teams Matcher Operator Relationship Specialty Start Date End Date Tushar Bradshaw MD [address] [place] [address] PCP - General Family Medicine 01/25/18 Cuate Conley FNP [address] [place] [address] Nurse Practitioner Family Medicine 07/14/23 documented as of this encounter
--- OUTSIDE RECORDS SUMMARY | 2025-07-10 12:51 | XMS_ITS | Encounter Summary ---
Author Organization [employer] Address [address] [facility] [address] [place] [address] Care Team Providers Care Nurses Educator Name Role Phone Name, Tushar ROWE Primary Care Provider [phone] Cuate Conley Unavailable Unavailable Reason for Visit * Reason Onset Date Comments Med Refill 09/05/2024 Encounter Details Date Type Department Care Team (Late st Contact Info) Description 09/05/2024 Refill [facility] [address] [place], [place] [phone] Julianna Garnett MD [address] [place], [place] [phone] Non-seasonal allergic rhinitis due to pollen Social History Tobacco Use Types Packs/Day Years [...] Description 09/05/2025 1:00 PM EST Office Visit [address] [address] Name, MD Tushar [address] [place] [address] 10/02/2025 11:30 AM EST Clinical Support [address] [address] Britni Tejada, ANABELLA documented as of this encounter Visit Diagnoses Diagnosis Non-seasonal allergic rhinitis due to pollen documented in this encounter Additional Health Concerns Assessment Noted Time PHQ-9 Depression Total Score: 9 12/03/19 24 1:46 PM EDT documented as of this encounter Care Teams Nurses Educator Relationship Specialty Start Date End Date Name, MD Tushar [address] [place] [address] PCP - General Family Medicine 01/25/18 Cuate Conley FNP [address] [place] [address] Nurse Practitioner Family Medicine 07/14/23 documented as of this encounter
--- OUTSIDE RECORDS SUMMARY | 2025-07-10 12:51 | XMS_ITS | Encounter Summary ---
Author Organization [employer] Address [address] [facility] 7t [place] [address] Care Team Providers Care Building Appraiser Name Role Phone Name, Tushar ROWE Primary Care Provider [phone] Cuate Conley Unavailable Unavailable Reason for Visit * Reason Comments Med Refill Encounter Details Date Type Department Care Team (Late st Contact Info) Description 07/24/2022 Refill [facility] [address] [place], [place] [phone] NameTushar MD [address] [place] [address] Social History Tobacco Use Types Packs/Day Years Used Date Smoking Tobacco: Never Assessed Comments Unknown Sex and Gender Information Value Date Recorded Sex Assigned at Female 06/09/2022 10:34 AM EDT Legal Sex Female 10:34 AM EDT Gender Identity Female 06/09/2022 10:34 AM EDT Sexual Orientation Choose not to disclose 2021 10:34 AM EDT documented as of this encounter Miscellaneous Notes * Telephone Encounter - Tushar Bradshaw MD - 07/28/2022 11:59 AM EST Duplicate request * Telephone Encounter - Britni Tejada RN - 07/28/2022 8:37 AM EST Tramadol is a duplicate request. Was completed 12/16/22 documented in this encounter Plan of Treatment Upcoming Encounters Date Type Department Care Team (Late st Contact Info) Description 09/05/2025 1:00 PM EST Office Visit [address] [address] Name, MD Tushar [address] [place] [address] 10/02/2025 11:30 AM EST Clinical Support [address] [address] Britni Tejada, RN documented as of this encounter Visit Diagnoses Not on filedocumented in this encounter Care Teams Building Appraiser Relationship Specialty Start Date End Date Name, MD Tushar [address] [place] [address] PCP - General Family Medicine 01/25/18 Cuate Conley FNP [address] [place] [address] Nurse Practitioner Family Medicine 07/14/23 documented as of this encounter
--- OUTSIDE RECORDS SUMMARY | 2025-07-10 12:51 | XMS_ITS | Encounter Summary ---
Author Organization [facility] Address [address] [facility] [address] [place] [address] Care Team Providers Care Candy Rolling Machine Operator Name Role Phone Name, Tushar ROWE Primary Care Provider [phone] Cuate Conley Unavailable Unavailable Encounter Details Date Type Department Care Team (Late st Contact Info) Description 07/25/2022 Orders Only [facility] [address] [place] [phone] Cynthia Plata LPN Social History Tobacco Use [...] Description 09/05/2025 1:00 PM EST Office Visit [address] [phone] Name, MD Tushar [address] [place] [phone] 10/02/2025 11:30 AM EST Clinical Support [address] [address] Britni Tejada RN documented as of this encounter Visit Diagnoses Not on filedocumented in this encounter Care Teams Candy Rolling Machine Operator Relationship Specialty Start Date End Date Name, MD Tushar [address] [place] [address] PCP - General Family Medicine 01/25/18 Cuate Conley FNP [address] [place] [address] Nurse Practitioner Family Medicine 07/14/23 documented as of this encounter
--- OUTSIDE RECORDS SUMMARY | 2025-07-10 12:51 | XMS_ITS | Clinical Summary ---
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 [facility]#: M [id number] : 1970Acct:[id number] Age/Sex: 53 / FADM Date: 06/28/24 Loc: HO.MAMMO Attending Dr: Tushar Bradshaw MD Ordering Physician: Tushar Bradshaw MDResults: 2Benign Fi ndings Date of Service: 06/28/24Follow Up: 1 Year From Orig inal Mammogram Procedure(s): MM tomosynthesis screening BI Accession Number(s): [id number] cc: Tushar Bradshaw MD EXAMINATION: MM SCREENING DIGITAL BREAST TOMOSYNTHESIS, BILATERAL CLINICAL INFORMATION: Screening. Asymptomatic. COMPARISON: Mammography: Comparison is made with available priors TECHNIQUE: Digital breast mammography with tomosynthesis is performed in both the craniocaudal and mediolateral oblique views along with computer-aided detection (CAD). FINDINGS: The breasts are heterogeneously dense, which may obscure small masses (ACR BI-RADS breast composition Category c). Bilateral marker clips. There are no significant masses, abnormal calcifications, or other abnormalities. MM/MM tomosynthesis screening BI IMPRESSION: No mammographic evidence of malignancy. ASSESSMENT: BI-RADS BI-RADS 2 - Benign Findings RECOMMENDATION: Routine annual mammography screening. 1 year F/U This examination should not preclude the clinical evaluation of a suspicious palpable abnormality. This patient's information was entered into a reminder system with a target due date for their next mammogram. Electronically signed by: Caitlin Ovalles DO 07/06/2024 08:17 AM EST Dictated By: Caitlin Ovalles DO Signed By: <Electronically signed by Caitlin Ovalles DO in OV> 07/06/24 0817 DD/ 1115 TD/TT: 06/28/24 1130 Power Machine Operator: Tushar Bradshaw MD IM BI PROCEDURES Edited Result - Final * ThinPrep Imaging Pap and HPV mRNA E6/E7 with Reflex to HPV 16,18/45 (02/02/2024 10:22 AM EDT) HPV 16 RNA TNP [facility] HPV 18/45 RNA [facility] HPV nRNA E6/E7 Not Detected Not Detected [facility] Comment:Methodology: Transcr iption-Mediated AmplificationThis assay detects E6/E7 viral messenger RNA (mRNA) from 14high-risk HPV types (16,18,31,33,35,39,45,51,52,56,58,59,66,68).Cervical sources are required for HPV testing.If a vaginal source from a patient who has had atotal hysterectomy with removal of cervix wassubmitted, please contact the testing laboratoryfor alternative testing options.For additional information, please refer [email or web address]/faq/GFO671e7(This link if provided for information/educational purposes only.)THIS TEST WAS PERFORMED AT:[id number] [address] [id number] JAQUEZ MD SOURCE: SEE NOTE [facility] Comment:Cervix Report Status: [facility] Clinical Information: SEE NOTE [facility] Comment:ROUTINE LMP: SEE NOTE [facility] Comment:NONE GIVEN Prev. PAP: SEE NOTE [facility] Comment:2019 Prev. BX: SEE NOTE [facility] Comment:NONE GIVEN Statement Of Adequacy: SEE NOTE [facility] Comment:Satisfactory for merry luation.Endocervical/transformation zone componentpresent. General Categorization: [facility] Interpretation/Result: SEE NOTE [facility] Comment:Cytology Results: Ne gative for intraepitheliallesion or malignancy. Cytology Comment SEE NOTE [facility] Comment:This Pap test has be en evaluated with computerassisted technology. Utility Worker Roller Shop: SEE NOTE [facility] Comment:MPG, CT(ASCP)CT scre ening location: [place] [address] Review Utility Worker Roller Shop: [facility] Pathologist [facility] PAP Infection [facility] See Note SEE NOTE [facility] Comment:EXPLANATORY NOTE:The Pap is a screening test for cervical cancer. It isnot a diagnostic test and is subject to false negativeand false positive results. It is most reliable when asatisfactory sample, regularly obtained, is submittedwith relevant clinical findings and history, and whenthe Pap result is evaluated along with historic andcurrent clinical information. 02/02/2024 10:2 2 AM EDT 02/03/2024 11:51 AM EDT Narrative [facility] - 02/09/2024 3:25 PM EDT SEE SCANNED RESULTS IN [id number] Clarissa Muro CNM LAB PATHOLOGY ORDERABLES Final Result Performing Organization Address [facility]/ZIP Co de Phone Number [facility] [address] [place] [phone] * Hepatitis C Ab (11/17/2023 9:51 AM EDT) Hepatitis C Antibody Nonreactive Nonreactive [facility] Comment:Antibodies to HCV no t detected; does not exclude early acuteHCV infection. Blood Venous blood specimen / Unknown 11/17/2023 9:51 AM EDT 11/17/2023 11:20 AM EDT Tushar Bradshaw MD LAB BLOOD ORDERABLES Final Resul t Performing Organization Address [facility] Co de Phone Number [facility] [address] [place] [phone] * Hm Colonoscopy (07/05/2019 2:13 PM EST) Colonoscopy Normal Normal Narrative Salma Bhatt - 07/05/2019 2:13 PM EST Recommended 10 year follow up Historical Provider HEALTH MAINTENANCE Edited Result - Final from Last 3 Months or Most Recently Relevant to Health Maintenance Insurance [employer]ARE < 65 [place] [id number] Care Teams Airport Guide Relationship Specialty Start Date End Date Name, MD Tushar [address] [place] [address] PCP - General Family Medicine 01/25/18 Cuate Conley FNP [address] [place] [address] Nurse Practitioner Family Medicine 07/14/23
--- OUTSIDE RECORDS SUMMARY | 2025-07-10 12:52 | XMS_ITS | Encounter Summary ---
Author Organization [employer] Address 75 [facility] 7t [place] [address] Care Team Providers Care Learning Technologist Name Role Phone Name, Tushar ROWE Primary Care Provider [phone] Cuate Conley Unavailable Unavailable Reason for Visit * Reason Comments Med Refill Encounter Details Date Type Department Care Team (Late st Contact Info) Description 02/14/2025 Refill [facility] [address] [place], [place] [phone] Clarissa Muro CNM [address] [place] [address] Social History Tobacco Use Types Packs/Day Years [...] Description 09/05/2025 1:00 PM EST Office Visit [address] [address] Name, MD Tushar [address] [place] [address] 10/02/2025 11:30 AM EST Clinical Support [address] [address] Britni Tejada, ANABELLA documented as of this encounter Visit Diagnoses Not on filedocumented in this encounter Additional Health Concerns Assessment Noted Time PHQ-9 Depression Total Score: 14 025 3:25 PM EDT documented as of this encounter Care Teams Learning Technologist Relationship Specialty Start Date End Date Name, MD Tushar [address] [place] [address] PCP - General Family Medicine 01/25/18 Cuate Conley FNP [address] [place] [address] Nurse Practitioner Family Medicine 07/14/23 documented as of this encounter
--- OUTSIDE RECORDS SUMMARY | 2025-07-10 12:52 | XMS_ITS | Encounter Summary ---
Author Organization [employer] Address 75 [facility] 7t [place] [address] Care Team Providers Care Clinical Account Liaison Name Role Phone Name, Tushar ROWE Primary Care Provider [phone] Cuate Conley Unavailable Unavailable Reason for Visit * Reason Onset Date Comments med B form 01/06/2024 Encounter Details Date Type Department Care Team (Late st Contact Info) Description 01/06/2024 Telephone [facility] [address] [place], [place] [phone] Name, MD Tushar [address] [place], [place] [phone] med B form Social History Tobacco Use Types Packs/Day Years [...] your housing situation today? I have jazmin albin 12/07/[address] you li [...] encounter Miscellaneous Notes * Telephone Encounter - Donte Villegas RN - 01/07/2024 10:01 AM EDT Pharmacy informed. * Telephone Encounter - Donte Villegas RN - 01/07/2024 9:52 AM EDT Med. B form faxed, confirmation received. * Telephone Encounter - Kathy Aparicio - 01/06/2024 11:22 AM EDT Tc from pt requesting status on medication albuterol (2.5 MG/3ML) 0.083% nebulizer solution . I clarified with pharmacy and was inform a med b form is needed . documented in this encounter Plan of Treatment Upcoming Encounters Date Type Department Care Team (Late st Contact Info) Description 09/05/2025 1:00 PM EST Office Visit [facility] [address] [place] [address] Name, MD Tushar [place] [address] 10/02/2025 11:30 AM EST Clinical Support [facility] [place] [address] Britni Tejada, RN documented as of this encounter Visit Diagnoses Not on filedocumented in this encounter Additional Health Concerns Assessment Noted Time PHQ-9 Depression Total Score: 9 12/03/19 24 1:46 PM EDT documented as of this encounter Care Teams Clinical Account Liaison Relationship Specialty Start Date End Date Name, MD Tushar Dav [facility] [place] [address] PCP - General Family Medicine 01/25/18 Cuate Conley FNP [address] [place] [address] Nurse Practitioner Family Medicine 07/14/23 documented as of this encounter
--- OUTSIDE RECORDS SUMMARY | 2025-07-10 12:52 | XMS_ITS | Encounter Summary ---
Author Organization [employer] Address 75 [facility] 7t [place] [address] Care Team Providers Care Crosscutter Rolled Glass Name Role Phone Name, Tushar ROWE Primary Care Provider [phone] Cuate Conley Unavailable Unavailable Reason for Visit * Reason Onset Date Comments Med Refill 02/03/2025 Encounter Details Date Type Department Care Team (Late st Contact Info) Description 02/03/2025 Refill [facility] 230 [place], [place] [phone] Julianna Garnett MD [address] [place], [place] [phone] Social History Tobacco Use Types Packs/Day Years [...] Description 09/05/2025 1:00 PM EST Office Visit [address] [address] Name, MD Tushar [address] [place] [address] 10/02/2025 11:30 AM EST Clinical Support [address] [address] Britni Tejada RN documented as of this encounter Visit Diagnoses Not on filedocumented in this encounter Additional Health Concerns Assessment Noted Time PHQ-9 Depression Total Score: 14 025 3:25 PM EDT documented as of this encounter Care Teams Crosscutter Rolled Glass Relationship Specialty Start Date End Date Tushar Bradshaw MD [address] [place] [address] PCP - General Family Medicine 01/25/18 Cuate Conley FNP [address] [place] [address] Nurse Practitioner Family Medicine 07/14/23 documented as of this encounter
--- OUTSIDE RECORDS SUMMARY | 2025-07-10 12:52 | XMS_ITS | Encounter Summary ---
Author Organization [employer] Address 75 [facility] 7t [place] [address] Care Team Providers Care Merchandise Collector Name Role Phone Name, Tushar ROWE Primary Care Provider [phone] Cuate Conley Unavailable Unavailable Reason for Visit * Reason Onset Date Comments Med Refill 01/03/2025 Encounter Details Date Type Department Care Team (Late st Contact Info) Description 01/03/2025 Telephone [facility] 230 [place], [place] [phone] Name, MD Tushar [address] [place], [place] [phone] Med Refill Social History Tobacco Use Types Packs/Day Years [...] encounter Miscellaneous Notes * Telephone Encounter - Darlene Santiago LPN - 01/03/2025 1:04 PM EDT Medication sent to [facility] Pharmacy on 09/06/24 90 day supply with 1 refill. * Telephone Encounter - Loan [place] - 01/03/2025 12:54 PM EDT TC from pt requesting medication refill. Medications needing refill : QUEtiapine (SEROquel) 50 MG tablet To be sent to: [facility] documented in this encounter Plan of Treatment Upcoming Encounters Date Type Department Care Team (Late st Contact Info) Description 09/05/2025 1:00 PM EST Office Visit [facility] [address] [place] [address] Name, MD Tushar [address] [place] [address] 10/02/2025 11:30 AM EST Clinical Support [facility] [address] [place] [address] Britni Tejada, RN documented as of this encounter Visit Diagnoses Not on filedocumented in this encounter Additional Health Concerns Assessment Noted Time PHQ-9 Depression Total Score: 14 025 3:25 PM EDT documented as of this encounter Care Teams Merchandise Collector Relationship Specialty Start Date End Date Name, MD Tushar [address] [place] [address] PCP - General Family Medicine 01/25/18 Cuate Conley FNP [address] [place] [address] Nurse Practitioner Family Medicine 07/14/23 documented as of this encounter
--- OUTSIDE RECORDS SUMMARY | 2025-07-10 12:52 | XMS_ITS | Encounter Summary ---
Author Organization [employer] Address 75 [facility] 7t [place] [address] Care Team Providers Care Stock Chaser Name Role Phone Name, Tushar ROWE Primary Care Provider [phone] Cuate Conley Unavailable Unavailable Reason for Visit * Reason Onset Date Comments Medication Question 07/17/2023 Encounter Details Date Type Department Care Team (Late st Contact Info) Description 07/17/2023 Telephone [facility] 230 [place], [place] [phone] Name, MD Tushar [address] [place], [place] [phone] Medication Question Social History Tobacco Use Types Packs/Day Years Used Date Smoking Tobacco: Never Smokeless Tobacco: Never Alcohol Use Standard Drinks/Week Comments Never 0 (1 standard drink = 0.6 oz pur e alcohol) Depression Answer Date Recorded Patient Health Questionnaire-9 Score 4 06/08/2023 Patient Health Questionnaire-9 Score 4 06/08/2023 Last PHQ-9: Questionnaire Data Not on file 1 Housing Stability Answer Date Recorded What is your housing situation today? I have jazmin talamantes 05/27/[address] you li ve. Do you have problems with any of the following? None of the above 05/27/2023 Food Insecurity Answer Date Recorded Within the past 12 months, y ou worried that your food would run out before you got money to buy more: Never True 05/27/2023 Within the past 12 months,th e food you bought just didn't last and you didn't have enough money to get more: Never True Transportation Answer Date Recorded In the past 12 months, has l ack of transportation kept you from medical appts, meetings, work or from getting things needed for daily living? No 05/27/2023 Utilities Answer Date Recorded In the past 12 months, has t he electric, gas, oil or water company threatened to shut off services in your home? No 05/27/2023 Depression Answer Date Recorded Patient Health Questionnaire-2 Score 1 06/08/2023 Comments Unknown Sex and Gender Information Value Date Recorded Sex Assigned at Female 06/09/2022 10:34 AM EDT Legal Sex Female 10:34 AM EDT Gender Identity Female 06/09/2022 10:34 AM EDT Sexual Orientation Choose not to disclose 2021 10:34 AM EDT documented as of this encounter Miscellaneous Notes * Telephone Encounter - Donte Villegas RN - 07/17/2023 12:34 PM EST Meds. Que for approval. * Telephone Encounter - Donte Villegas RN - 07/17/2023 10:25 AM EST Please review and advise if needed, 90 days supply que for approval. * Telephone Encounter - Ky Hong - 07/17/2023 9:37 AM EST Tc from [facility] pharmacy requesting a new script for a 90 Day supple for Riboflavin 400 MG capsule. Pharmacy states that insurance would not cover the 30 day supply. Please contact Pharmacy @ [phone] documented in this encounter Plan of Treatment Upcoming Encounters Date Type Department Care Team ([facility] st Contact Info) Description 09/05/2025 1:00 PM EST Office Visit [facility] [address] [place] [address] Name, MD [facility]ar [facility] [place] [address] 10/02/2025 11:30 AM EST Clinical Support [facility] [address] [place] [address] Britni Tejada, RN documented as of this encounter Visit Diagnoses Not on filedocumented in this encounter Additional Health Concerns Assessment Noted Time PHQ-9 Depression Total Score: 4 06/08/20 23 11:17 AM EDT documented as of this encounter Care Teams Stock Chaser Relationship Specialty Start Date End Date Name, MD Tushar [facility] [place] [address] PCP - General Family Medicine 01/25/18 Cuate Conley FNP [address] [place] [address] Nurse Practitioner Family Medicine 07/14/23 documented as of this encounter
--- OUTSIDE RECORDS SUMMARY | 2025-07-10 12:52 | XMS_ITS | Encounter Summary ---
Author Organization [employer] Address 75 [facility] 7t [place] [address] Care Team Providers Care Helper Marble Finisher Name Role Phone Name, Tushar ROWE Primary Care Provider [phone] Cuate Conley Unavailable Unavailable Reason for Visit * Reason Onset Date Comments Med Refill 02/10/2024 Encounter Details Date Type Department Care Team (Late st Contact Info) Description 02/10/2024 Refill [facility]INE 230 [place] [address] Cuate Conley FNP Social History Tobacco Use [...] Description 09/05/2025 1:00 PM EST Office Visit [address] [address] Name, MD Tushar [address] [place] [address] 10/02/2025 11:30 AM EST Clinical Support [address] [address] Britni Tejada RN documented as of this encounter Visit Diagnoses Not on filedocumented in this encounter Additional Health Concerns Assessment Noted Time PHQ-9 Depression Total Score: 9 12/03/19 24 1:46 PM EDT documented as of this encounter Care Teams Helper Marble Finisher Relationship Specialty Start Date End Date Name, MD Tushar [address] [place] [address] PCP - General Family Medicine 01/25/18 Cuate Conley FNP [address] [place] [address] Nurse Practitioner Family Medicine 07/14/23 documented as of this encounter
--- OUTSIDE RECORDS SUMMARY | 2025-07-10 12:52 | XMS_ITS | Encounter Summary ---
Author Organization [employer] Address 75 [facility] 7t [place] [address] Care Team Providers Care Upscale Security Officer Name Role Phone Name, Tushar ROWE Primary Care Provider [phone] Cuate Conley Unavailable Unavailable Reason for Visit * Reason Onset Date Comments Med Refill 02/10/2024 Encounter Details Date Type Department Care Team (Late st Contact Info) Description 02/10/2024 Refill [facility] MED[facility]INE [address] [place], [place] [phone] Name, MD Tushar [address] [place], [place] [phone] Non-seasonal allergic rhinitis due to pollen; Fibromyalgia; Moderate persistent asthma without complication Social History Tobacco Use Types Packs/Day Years [...] Description 09/05/2025 1:00 PM EST Office Visit [address] [address] Name, MD Tushar [address] [place] [address] 10/02/2025 11:30 AM EST Clinical Support [address] [address] Britni Tejada, ANABELLA documented as of this encounter Visit Diagnoses Diagnosis Non-seasonal allergic rhinitis due to pollen Fibromyalgia Unspecified myalgia and myositis Moderate persistent asthma without complication documented in this encounter Additional Health Concerns Assessment Noted Time PHQ-9 Depression Total Score: 9 12/03/19 24 1:46 PM EDT documented as of this encounter Care Teams Upscale Security Officer Relationship Specialty Start Date End Date Name, MD Tushar [address] [place] [address] PCP - General Family Medicine 01/25/18 Cuate Conley FNP [address] [place] [address] Nurse Practitioner Family Medicine 07/14/23 documented as of this encounter
--- OUTSIDE RECORDS SUMMARY | 2025-07-10 12:52 | XMS_ITS | Encounter Summary ---
Author Organization [employer] Address 75 [facility] 7t [place] [address] Care Team Providers Care Human Resources Support Specialist Name Role Phone Name, Tushar ROWE Primary Care Provider [phone] Cuate Conley Unavailable Unavailable Reason for Visit * Reason Onset Date Comments Med Refill 05/01/2025 Encounter Details Date Type Department Care Team (Late st Contact Info) Description 05/01/2025 Telephone [facility]ICINE 230 [place], [place] [phone] Name, MD Tuhsar [address] [place], [place] [phone] Med Refill Social History Tobacco Use Types [...] Telephone Encounter - Darlene Santiago LPN - 05/01/2025 9:56 AM EDT Script was sent to [facility] on 02/20/25 #30 with 2 refills. * Telephone Encounter - Samira Tim - 05/01/2025 9:48 AM EDT TC from pt requesting medication refill. Medications needing refill : - Fezolinetant (Veozah) 45 MG tablet To be sent to: - [facility] - [place], [place] - [address] [facility] documented in this encounter Plan of Treatment Upcoming Encounters Date Type Department Care Team (Late st Contact Info) Description 09/05/2025 1:00 PM EST Office Visit [facility]INE 230 [place] [address] Name, MD Tushar [address] [place] [address] 10/02/2025 11:30 AM EST Clinical Support [facility]INE [address] [place] [address] Britni Tejada, RN documented as of this encounter Visit Diagnoses Not on filedocumented in this encounter Additional Health Concerns Assessment Noted Time PHQ-9 Depression Total Score: 14 025 3:25 PM EDT documented as of this encounter Care Teams Human Resources Support Specialist Relationship Specialty Start Date End Date Name, [place] [address] PCP - General Family Medicine 01/25/18 Cuate Conley FNP [address] [place] [address] Nurse Practitioner Family Medicine 07/14/23 documented as of this encounter
--- OUTSIDE RECORDS SUMMARY | 2025-07-10 12:52 | XMS_ITS | Encounter Summary ---
Author Organization [employer] Address [address] [facility] 7t [place] [address] Care Team Providers Care Public Policy Professor Name Role Phone Name, Tushar ROWE Primary Care Provider [phone] Cuate Conley Unavailable Unavailable Reason for Visit * Reason Onset Date Comments Med Refill 07/11/2024 Encounter Details Date Type Department Care Team (Late st Contact Info) Description 07/11/2024 Telephone [facility] [address] [place], [place] [phone] Name, MD Tushar [address] [place], [place] [phone] Med Refill Social History Tobacco Use Types [...] is your housing situation today? I have jazminmadeline talamantes 12/07/[address] you [...] Telephone Encounter - Darlene Santiago LPN - 07/11/2024 2:41 PM EST Medication was sent to [facility] on 04/13/24 #135 with 1 refill. * Telephone Encounter - Demetrius Way - 07/11/2024 2:33 PM EST TC from pt requesting medication refill. Medications needing refill : QUEtiapine (SEROquel) 50 MG tablet To be sent to: [facility] - [place], [place] - [address] [place] [address] documented in this encounter Plan of Treatment Upcoming Encounters Date Type Department Care Team (Late st Contact Info) Description 09/05/2025 1:00 PM EST Office Visit [address] [address] Name, MD Tushar [address] [place] [address] 10/02/2025 11:30 AM EST Clinical Support [address] [address] Britni Tejada, RN documented as of this encounter Visit Diagnoses Not on filedocumented in this encounter Additional Health Concerns Assessment Noted Time PHQ-9 Depression Total Score: 9 12/03/19 24 1:46 PM EDT documented as of this encounter Care Teams Public Policy Professor Relationship Specialty Start Date End Date Name, MD Tushar [address] [place] [address] PCP - General Family Medicine 01/25/18 Cuate Conley FNP [address] [place] [address] Nurse Practitioner Family Medicine 07/14/23 documented as of this encounter
--- OUTSIDE RECORDS SUMMARY | 2025-07-10 12:52 | XMS_ITS | Encounter Summary ---
Author Organization [employer] [facility] Address [address] [facility] 7t [place] [address] Care Team Providers Care Typesetting Machine Tender Name Role Phone Name, Tushar ROWE Primary Care Provider [phone] Cuate Conley Unavailable Unavailable Encounter Details Date Type Department Care Team ([facility] Contact Info) Description 12/19/[address] [facility] MED[facility]INE [address] [place] [address] [phone] Tushar Bradshaw MD [address] [place] [phone] Social History Tobacco Use Types Packs/Day Years Used Date Smoking Tobacco: Never Smokeless Tobacco: Never Comments Unknown Sex and Gender Information Value Date Recorded Sex Assigned at Female 06/09/2022 10:34 AM EDT Legal Sex Female 10:34 AM EDT Gender Identity Female 06/09/2022 10:34 AM EDT Sexual Orientation Choose not to disclose 2021 10:34 AM EDT COVID-19 Exposure Response Date Recorded In the last 10 days, have yo u been in contact with someone who was confirmed or suspected to have Coronavirus/COVID-19? No / Unsure 12/15/2022 1:21 PM EDT documented as of this encounter Plan of Treatment Upcoming Encounters Date Type Department Care Team (Late Contact Info) Description 09/05/2025 1:00 PM EST Office Visit [facility] [address] [place] [address] [phone] Tushar Bradshaw MD [address] [place] [phone] 10/02/2025 11:30 AM EST Clinical Support [facility] [address] [place] [address] Britni Tejada, RN documented as of this encounter Procedures Procedure Name Priority Date/Time Associated Diagnosis Comments COLONOSCOPY Routine 07/05/2019 2:13 PM EST PAP/HPV Routine 02/04/2019 12:00 AM EDT documented in this encounter Results * Hm Colonoscopy (07/05/2019 2:13 PM EST) Colonoscopy Normal Normal Narrative Salma Bhatt - 07/05/2019 2:13 PM EST Recommended 10 year follow up Historical Provider HEALTH MAINTENANCE Edited Result - Final * Pap Smear (02/04/2019 12:00 AM EDT) us Historical Provider HEALTH MAINTENANCE Final Result documented in this encounter Visit Diagnoses Not on filedocumented in this encounter Additional Health Concerns Assessment Noted Time PHQ-9 Depression Total Score: 12 023 10:37 AM EDT documented as of this encounter Care Teams Typesetting Machine Tender Relationship Specialty Start Date End Date Name, [place] [address] PCP - General Family Medicine 01/25/18 Cuate Conley FNP [address] [place] [address] Nurse Practitioner Family Medicine 07/14/23 documented as of this encounter
--- OUTSIDE RECORDS SUMMARY | 2025-07-10 12:52 | XMS_ITS | Encounter Summary ---
Author Organization [employer] Address [address] [facility] 7t [place] [address] Care Team Providers Care Economics Lecturer Name Role Phone Name, Tushar ROWE Primary Care Provider [phone] Cuate Conley Unavailable Unavailable Reason for Visit * Reason Onset Date Comments Med Refill 05/09/2025 Encounter Details Date Type Department Care Team (Late st Contact Info) Description 05/09/2025 Refill [facility] [address] [place], [place] [phone] Name, MD Tushar [address] [place], [place] [phone] Social History Tobacco Use Types Packs/Day Years [...] Description 09/05/2025 1:00 PM EST Office Visit [address] [address] Name, MD Tushar [address] [place] [address] 10/02/2025 11:30 AM EST Clinical Support [address] [address] Britni Tejada RN documented as of this encounter Visit Diagnoses Not on filedocumented in this encounter Additional Health Concerns Assessment Noted Time PHQ-9 Depression Total Score: 14 025 3:25 PM EDT documented as of this encounter Care Teams Economics Lecturer Relationship Specialty Start Date End Date Tushar Bradshaw MD [address] [place] [phone] PCP - General Family Medicine 01/25/18 Cuate Conley FNP [address] [place] [address] Nurse Practitioner Family Medicine 07/14/23 documented as of this encounter
--- OUTSIDE RECORDS SUMMARY | 2025-07-10 12:52 | XMS_ITS | Encounter Summary ---
Author Organization [email or web address] Address [address] [facility] 7t [place] [address] Care Team Providers Care Mobile Game Engineer Name Role Phone Name, Tushar ROWE Primary Care Provider [phone] Cuate Conley Unavailable Unavailable Reason for Visit * Reason Onset Date Comments Med Refill 04/24/2025 Encounter Details Date Type Department Care Team (Late st Contact Info) Description 04/24/[address] [facility]INE [address] [place], [place] [phone] Julianna Garnett MD [address] [place] [address] Social History Tobacco Use Types Packs/Day Years [...] Description 09/05/2025 1:00 PM EST Office Visit [address] [address] Name, MD Tushar [address] [place] [address] 10/02/2025 11:30 AM EST Clinical Support [address] [address] Britni Tejada RN documented as of this encounter Visit Diagnoses Not on filedocumented in this encounter Additional Health Concerns Assessment Noted Time PHQ-9 Depression Total Score: 14 025 3:25 PM EDT documented as of this encounter Care Teams Mobile Game Engineer Relationship Specialty Start Date End Date Tushar Bradshaw MD [address] [place] [address] PCP - General Family Medicine 01/25/18 Cuate Conley FNP [address] [place] [phone] Nurse Practitioner Family Medicine 07/14/23 documented as of this encounter
--- OUTSIDE RECORDS SUMMARY | 2025-07-10 12:52 | XMS_ITS | Encounter Summary ---
Author Organization [employer] Address [address] [facility] 7t [place] [address] Care Team Providers Care Furnace Combustion Tester Name Role Phone Name, Tushar ROWE Primary Care Provider [phone] Cuate Conley Unavailable Unavailable Reason for Visit * Reason Onset Date Comments Med Refill 06/10/2024 Encounter Details Date Type Department Care Team (Late st Contact Info) Description 06/10/2024 Refill [facility] [address] [place], [place] [phone] Name, MD Tushar [address] [place], [place] [phone] Fibromyalgia Social History Tobacco Use Types Packs/Day [...] 09/05/2025 1:00 PM EST Office Visit [address] [address] NameTushar MD [address] [place] [address] 10/02/2025 11:30 AM EST Clinical Support [address] [address] Britni Tejada, ANABELLA documented as of this encounter Visit Diagnoses Diagnosis Fibromyalgia Unspecified myalgia and myositis documented in this encounter Additional Health Concerns Assessment Noted Time PHQ-9 Depression Total Score: 9 12/03/19 24 1:46 PM EDT documented as of this encounter Care Teams Furnace Combustion Tester Relationship Specialty Start Date End Date NameTushar MD [address] [place] [phone] PCP - General Family Medicine 01/25/18 Cuate Conley FNP [address] [place] [address] Nurse Practitioner Family Medicine 07/14/23 documented as of this encounter
--- OUTSIDE RECORDS SUMMARY | 2025-07-10 12:52 | XMS_ITS | Encounter Summary ---
Author Organization [employer] Address [address] [facility] 7t [place] [address] Care Team Providers Care And Drying Supervisor Cooking Casing Name Role Phone Name, Tushar ROWE Primary Care Provider [phone] Cuate Conley Unavailable Unavailable Reason for Visit * Reason Onset Date Comments Med Refill 07/12/2024 Encounter Details Date Type Department Care Team (Late st Contact Info) Description 07/12/2024 Refill [facility] [address] [place], [place] [phone] Name, MD Tushar [address] [place] [address] Social History Tobacco Use Types Packs/Day Years [...] Description 09/05/2025 1:00 PM EST Office Visit [address] [address] Name, MD Tushar [address] [place] [address] 10/02/2025 11:30 AM EST Clinical Support [address] [address] Britni Tejada, ANABELLA documented as of this encounter Visit Diagnoses Not on filedocumented in this encounter Additional Health Concerns Assessment Noted Time PHQ-9 Depression Total Score: 9 12/03/19 24 1:46 PM EDT documented as of this encounter Care Teams And Drying Supervisor Cooking Casing Relationship Specialty Start Date End Date Tushar Bradshaw MD [address] [place] [address] PCP - General Family Medicine 01/25/18 Cuate Conley FNP [address] [place] [phone] Nurse Practitioner Family Medicine 07/14/23 documented as of this encounter
== END 2025-07-10 10:21 | disposition home or self-care (01) ==
LOC: HO.MAMMO 10:20
PROVIDERS: PCP Internal Medicine Geriatric Medicine; Visit Provider Internal Medicine Geriatric Medicine
DX: Z12.31 Encounter for screening mammogram for malignant neoplasm of breast (principal)
CPT/HCPCS: 77063; 77067

== ENCOUNTER → 2025-07-10 10:30 | Outpatient (BNV) | payer OTHER, SELFPAY | PROVIDERS: PCP Internal Medicine Geriatric Medicine; Visit Provider Internal Medicine | DX: Z12.31 Encounter for screening mammogram for malignant neoplasm of breast (principal) | CPT/HCPCS: 77063; 77067 ==